=== PATIENT | female | born 1965 | race Hispanic/Latino ===

== ENCOUNTER 2021-02-23 06:55 | Emergency (ER) | payer OTHER ==
[~2021-02-23] VITALS: Ht 152.4 cm; Wt 74.8 kg
[2021-02-23 07:12] VITALS: BP 143/75
[2021-02-23 07:45] LABS: BASOPHILS % (AUTO) 0.2 % (0.0-5.0); HEMATOCRIT 40.3 % (36-48); LYMPHOCYTES % (AUTO) 18.8 % (21.0-51.0); MEAN CORPUSCULAR HEMOGLOBIN 30.4 pg (27.0-33.0); MEAN CORPUSCULAR VOLUME 92.2 fL (79-99); MONOCYTES % (AUTO) 8.4 % (3.0-13.0); NEUTROPHILS % (AUTO) 71.1 % (40.0-77.0); PLATELET COUNT (AUTO) 286 K/uL (130-400); RED BLOOD CELL COUNT(AUTO) 4.37 MIL/uL (4.00-5.50); RED CELL DISTRIBUTION WIDTH 12.3 % (11.0-15.5); WHITE BLOOD COUNT (AUTO) 12.6 K/uL (4.8-10.8)
[2021-02-23 08:46] LABS: APPEARANCE,URINE Clear (CLEAR); BILIRUBIN,URINE Negative (NEGATIVE); COLOR,URINE Yellow (YELLOW); GLUCOSE, URINE (UA) Negative (NEGATIVE); KETONES,URINE Negative (NEGATIVE); LEUKOCYTE ESTERASE ,URINE Negative (NEGATIVE); NITRATE,URINE Negative (NEGATIVE); OCCULT BLOOD,URINE Negative (NEGATIVE); PH,URINE 5.5 (5.0-8.0); PROTEIN,URINE Negative (NEGATIVE); UROBILINOGEN,URINE 0.2 mg/dL (0.2-1.0)
[2021-02-23 08:46] LABS: ALBUMIN 3.9 g/dL (3.5-5.0); BILIRUBIN,TOTAL 0.9 mg/dL (0.2-1.0); CREATININE 0.5 mg/dL (0.5-1.5); POTASSIUM 5.4 mmol/L (3.5-5.1)
[2021-02-23 09:00] LABS: HCG,QUAL RESULT NEGATIVE (NEGATIVE)
[2021-02-23] MEDS ORDERED: IOHEXOL-350 75 ML VIAL IV ONE (09:34)
[2021-02-23] MEDS ORDERED: IBUPROFEN 600 MG TABLET PO SCH (09:48)
[2021-02-23 10:05] VITALS: BP 128/63
[2021-02-23] MEDS ORDERED: AMOX500C2 PO (11:20)
[2021-02-23] MEDS ORDERED: AMOX/CLAV 500/125MG TAB PO SCH (11:33)
[2021-02-23 12:40] VITALS: BP 119/76
== END 2021-02-23 12:30 | disposition home or self-care (01) ==
LOC: EDH 06:55
DX: K57.32 Diverticulitis of large intestine without perforation or abscess without bleeding (principal)
CPT/HCPCS: 36415; 74177; 80053; 81003; 81025; 82550; 83690; 84484; 85025; 93005; 99285; Q9967